=== PATIENT | female | born 1955 | race African-American/Black ===

== ENCOUNTER 2016-12-10 09:27 | Inpatient (IN) | payer MEDICARE, OTHER ==
--- NOTE | ~2016-12-10 | HP ---
History And Physical [place] [id number] [facility] [place]. [address] NAME: JACKIE REYNA : 57 STATUS : ADM Coleen PAT#: [id number] AGE: 61 ADM/REG DATE : 12/10/16 MR#: [id number] REPORT SERV DATE: 12/10/16 DICTATED BY: EMERSON GRACIA DATE: 12/10/16 REPORT STATUS : Draft TRANSCRIBED BY: MODL DATE: 12/10/16 DATE OF ADMISSION: 12/10/2016 REASON FOR ADMISSION: Dehydration, lactic acidosis, obstipation, altered mental status with encephalopathy. HISTORY OF PRESENT ILLNESS: This is a 61-year-old black female, who is cared for at home by her brother. [facility] sends a personal caregiver to sit with her in the daytime. She is followed primarily by the [facility], Tristian Bernabe and his nurse practitioner, Belen Montiel, see her for the most part. She was apparently at [facility] in the last six weeks. She was found to have an elevated ammonia and the change in mental status was attributed to hepatic encephalopathy, though primary cause of liver failure was not apparent to her brother. She has been on lactulose since that time. She continues to have constipation. He uses the MiraLAX when she does not have a bowel movement; however, the lactulose has helped with bowel movements in the past. Her blood sugars run in the 130 range. She uses metformin only about once a day. She has been on the metformin for four or five years for diabetes. She has not been known to have a hepatic steatosis or liver failure from that; however, her brother does have hepatic steatosis. Her blood sugars run at maximum of 130, but usually in the 79 to 80 range at home. He is not sure of what the hemoglobin A1cs have been in the past. She usually walks with assistance, but for the last three weeks, she has only been able to get up with a great deal of effort and assistance, and also has been refusing some of her medication. She uses a carrier such as applesauce or pudding to help her take her medication. In the emergency room, she was found to have a creatinine of 1.32. We do not have baseline level to compare. Her BUN of 22 indicates she may be somewhat dehydrated. A CT scan of her brain showed poor encephalopathy with volume loss on the left frontal area consistent with long-standing neurologic defect. Her abdominal CT scan showed evidence of stool stasis in the colon with diffuse distention in the small bowel. There was an irregular mass in the left adrenal gland, but it merged with the wall of the stomach. She does have cholelithiasis, but no evidence of pericolic inflammation. She has multiple bilateral renal cysts as well. Her lactic acid level was found to be elevated at 2.8 on the metformin, and her ammonia level was 76. 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 History And Physical [address] [address] NAME: JACKIE REYNA : 57 STATUS : ADM Coleen PAT#: [id number] AGE: 61 ADM/REG DATE : 12/10/16 MR#: [id number] REPORT SERV DATE: 12/10/16 DICTATED BY: EMERSON GRACIA DATE: 12/10/16 REPORT STATUS : Draft TRANSCRIBED BY: ADELE DATE: 12/10/16 HOME MEDICATIONS: Include the following: Keflex 500 mg p.o. b.i.d. for seven days, according to her brother was for urinary tract infection, diagnosed at [facility]; vitamin D3 at 2000 units p.o. q.a.m.; Depakote sprinkles 750 mg three times a day; Zetia 10 mg p.o. daily; lactulose 30 mL t.i.d.; Keppra 1000 mg at bedtime, 750 mg every morning; levothyroxine 25 mcg p.o. q.a.m.; loratadine 10 mg p.o. p.r.n., allergies; metformin 1000 mg p.o. q.a.m.; multivitamins one a day; MiraLAX powder 17 g p.r.n.; Maxzide 50 one a day; verapamil ER 120 mg p.o. q.a.m. SOCIAL HISTORY: She lived at home, was taken care of by her mother for the mother's life; mother now of breast cancer, and brother is taking care along with [employer] assistance. She does not smoke, drink, or dip snuff. She recognizes family members and acknowledges them. Usually does not speak, but is able to get up and walk around with assistance. FAMILY HISTORY: Mother 10 years ago of breast cancer. Father is , probably high blood pressure. Two brothers, one with a fatty liver, but no diabetes. Brother does work at [employer] and takes care of her at night. REVIEW OF SYSTEMS: Not obtainable from the patient. PHYSICAL EXAMINATION: VITAL SIGNS: Blood pressure initially was 152/69 with a heart rate of 80, respiratory rate 19, oxygen saturation was 95%. HEENT: Extraocular movements intact. The patient lifts her head, looks slowly, will not answer, will not speak. NECK: No bruit, without any JVD. CHEST: Clear to A and P. HEART: Regular S1, S2 without murmur, gallop, or click. BREASTS: Grossly without mass. ABDOMEN: Soft, obese, nontender, distended with very active bowel sounds. EXTREMITIES: Have no edema. Distal pulses are intact in the dorsalis pedis and posterior tibial. She does have contracture of the right upper extremity with flexion contractures of her elbow, wrist, and hand on the right side. Sensory exam is not testable. She does move her lower extremities, but has a brace on the left lower extremity. Walking was not attempted. LYMPHATICS: There is no adenopathy palpable. SKIN: Without rash, ecchymosis, or bruising. LABORATORY DATA: CT scan of the brain as above. CT scan of the abdomen did show evidence of obstipation as above. Urinalysis now showing two white cells per high-powered field, negative leukocyte esterase and nitrite, specific gravity of 1.018, pH 6. The lactic acid level was 2.8, slightly elevated. Her CMP did show sodium 144, potassium 3.9, creatinine 1.36, BUN 22. Her GFR was 42 mL a minute. Albumin 3.1. Protein 8.6. The AST was 74, slightly elevated. Lipase 170. Alkaline phosphatase elevated at 142. Ammonia was 76. Her valproic acid level was 113.2. Hemoglobin 14.6, hematocrit 43.3, white count 5.9, platelets History And Physical [address] [address] NAME: JACKIE REYNA : 57 STATUS : ADM Coleen PAT#: [id number] AGE: 61 ADM/REG DATE : 12/10/16 MR#: [id number] REPORT SERV DATE: 12/10/16 DICTATED BY: EMERSON GRACIA DATE: 12/10/16 REPORT STATUS : Draft TRANSCRIBED BY: MODL DATE: 12/10/16 114,000, MCV is 96.7. ASSESSMENT: 1. Encephalopathy with loss of appetite, decreased ambulation, refusal of medication, leading to dehydration. 2. Possible chronic hepatic encephalopathy, discovered at [facility] [place], we will get old records. She does have history of meningitis and history of polio with right upper extremity hemiparesis as an from years ago according to brother. 3. Seizure disorder with grand mal seizure about four years ago. The last known big seizure without the small seizure. She is followed by Dr. Jackie Chacon. She appears to be Depakote toxic. 4. Depakote toxicity. We will reduce the level to 500 mg p.o. t.i.d., though after the dehydration resolves, she may have to go back to her previous dosing. 5. Diabetes type 2. Blood sugars have been good at home, with lactic acidosis now, I blame metformin. 6. Lactic acidosis. Suspect contribution from metformin. We will discontinue this and look at the blood sugars while she is here. 7. Gallstones, appears to be not acute problem. PLAN: I am going to hydrate with 3 L of IV fluid. Attempt feeding withholding the metformin and restart the Depakote tomorrow at a lower dose. We will increase the lactulose because of elevated ammonia suspicious for hepatic encephalopathy and repeat the ammonia level in the morning. I am going to discontinue the verapamil because of the adverse side effect of constipation associated with it and substitute diltiazem 60 b.i.d. I will discontinue the Keflex as this was the most recent medication started and may be associated with some encephalopathic changes she has had. Hold the triamterene because of dehydration as well as the metformin. She may need further evaluation with a followup CT scan of the abdomen. After discussion with brother, the patient is to be DNR if natural occurs. CARROLL/ADELE Emerson Gracia M.D. / [id number] CC: Hay Ferro Jr, MD Sharon Farber, M.D. Randy Heisser, M.D.
--- NOTE | ~2016-12-10 | DS ---
Discharge Summary [facility] [address] [place]. [address] NAME: NGHIA REYNA : 57 STATUS : DIS IN PAT#: [id number] AGE: 61 ADM/REG DATE : 12/11/16 MR#: [id number] REPORT SERV DATE: 12/16/16 DICTATED BY: LEE LEONARD DATE: 12/15/16 REPORT STATUS : Draft TRANSCRIBED BY: MODGianfranco DATE: 12/15/16 ADMISSION DATE: 12/11/2016 DISCHARGE DATE: 12/14/2016 REASON FOR ADMISSION: This is a 61-year-old black female who is cared for by her older brother. 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 She is part of the [facility] day program. She came in for dehydration, lactic acidosis, obstipation, and altered mental status with encephalopathy. DISCHARGE DIAGNOSES: 1. Altered mental status secondary to Depakote toxicity. 2. History of seizure disorder. 3. Lactic acidosis secondary to metformin. 4. Hypercalcemia. 5. Elevated ammonia level secondary to Depakote versus liver disease. HOSPITAL COURSE: Altered mental status. As previously mentioned, the patient was having altered mental status before coming in, very lethargic. She was found to be Depakote toxic with a Depakote level of 113.2. Her Depakote was discontinued. She is on dual antiseizure therapy with being on Keppra and Depakote. Her Depakote level on recheck went down to 17.4 on 12/13/2016. She had no seizure episodes while here at the hospital, so it was deemed appropriate to just use monotherapy with the Keppra. Also, the patient had elevated ammonia levels. Ammonia level was 93 on admission. She is on lactulose at home apparently, but it was increased to three times a day here at the hospital and she trended down from 93 to 55 on 12/14/2016. It is unclear whether the patient actually has some liver disease or if this is just due to the Depakote; however, the patient's liver function panel was within normal limits here at the hospital and she had a CT of the abdomen and pelvis which did not show any abnormality of the liver. The patient's mental status improved each day while here at the hospital and she was much more alert and interactive and eating well by the end of her hospital stay. Another finding was the patient was found to be hypercalcemic. Intact PTH was checked and was within normal limits, but her ionized calcium was found to be 5.28 on admission. She was given pamidronate IV and her calcium level trended down from 5.28 to 4.89 before discharge. The patient also found to have lactic acidosis as her lactate level was 2.8 on admit. The patient was on metformin at home. Metformin was stopped and her repeat lactate was 1.8. Also her hemoglobin A1c was checked while here at the hospital and it was 5.1, so metformin will be permanently discontinued. DISCHARGE CONDITION: Stable. DISCHARGE MEDICATIONS: 1. Synthroid 25 mcg p.o. daily. 2. Keppra 750 mg p.o. q.a.m. 3. Keppra 1000 mg p.o. at bedtime. 4. Lactulose 30 mL p.o. t.i.d. 5. MiraLAX 17 g p.o. daily. Discharge Summary [address] [address] NAME: NGHIA REYNA : 57 STATUS : DIS IN PAT#: [id number] AGE: 61 ADM/REG DATE : 12/11/16 MR#: [id number] REPORT SERV DATE: 12/16/16 DICTATED BY: LEE LEONARD DATE: 12/15/16 REPORT STATUS : Draft TRANSCRIBED BY: ADELE DATE: 12/15/16 6. Vitamin D3 2000 units p.o. daily. 7. Claritin 10 mg p.o. daily. 8. Multivitamin one tablet p.o. daily. 9. Cardizem CD 180 mg p.o. daily. DISCHARGE PLAN: The patient to return to her home residents. Follow up with her primary care, Belen Montiel, in one to two weeks and resume [facility] day program on 12/17/2016. DICTATED BY: ANGEL Parmar/ADELE Lee Leonard APN / [id number] CC: Ankit Urena
[2016-12-10 08:37] LABS: BASOPHILS 0.3 %; BASOPHILS ABSOLUTE 0.02 10/3/uL (0.0-0.16); EOSINOPHILS 2.7 %; EOSINOPHILS ABSOLUTE 0.16 10/3/uL (0.0-0.53); ER CBC TAT 0 Hrs 09 Mins; HEMATOCRIT 43.3 % (36.0-48.0); HEMOGLOBIN 14.6 g/dL (12.0-16.0); IMMATURE GRANULOCYTES 0.5 %; IMMATURE GRANULOCYTES ABSOLUTE 0.03 10/3/uL (0.0-0.11); LYMPHOCYTES 46.4 %; LYMPHOCYTES ABSOLUTE 2.72 10/3/uL (0.67-4.30); MEAN CORPUS HGB CONC 33.7 g/dL (32.0-36.0); MEAN CORPUSCULAR HEMOGLOB 32.6 pg (26.0-34.0); MEAN CORPUSCULAR VOLUME 96.7 fL (80-100); MONOCYTES 8.5 %; NEUTROPHILS 41.6 %; NEUTROPHILS ABSOLUTE 2.43 10/3/uL (2.02-8.40); PLATELET COUNT 114 10/3/uL (150-400); RBC DISTRIBUTION WIDTH 15.4 % (12.0-16.0); RED CELL COUNT 4.48 10/6/uL (4.0-5.6); WHITE BLOOD CELLS 5.9 10/3/uL (4.5-10.5)
[2016-12-10 08:38] LABS: MANUAL DIFF NO %
[2016-12-10 08:54] LABS: A/G RATIO 0.6 (0.7-1.9); ALBUMIN 3.1 G/DL (3.5-5.0); ALKALINE PHOSPHATASE 142 U/L (45-117); BUN (BLOOD UREA NITROGEN) 22 MG/DL (6-23); CALCIUM, SERUM 12.4 MG/DL (8.5-10.4); CHLORIDE, SERUM 107 MMOL/L (96-112); CO2 (CARBON DIOXIDE) 30 MMOL/L (24-34); CREATININE 1.36 MG/DL (0.55-1.02); GFR AFRICAN AMERICAN 49 ML/MIN (>=60); GFR NON AFRICAN AMERICAN 42 ML/MIN (>=60); GLOBULIN 5.5 G/DL (2.5-4.1); GLUCOSE, SERUM 98 MG/DL (60-99); POTASSIUM, SERUM 3.9 MMOL/L (3.5-5.3); SGOT(AST) 74 U/L (5-40); SGPT(ALT) 48 U/L (5-65); SODIUM, SERUM 144 MMOL/L (135-148); TOTAL BILIRUBIN 0.3 MG/DL (0-1.2); TOTAL PROTEIN 8.6 G/DL (6.0-8.5)
[2016-12-10 09:05] LABS: LACTATE 2.8 MMOL/L (0.3-2.4)
[2016-12-10 09:21] LABS: ASCORBIC ACID (UR NOT ORDER) 40 (NEG); BILIRUBIN, URINE NEGATIVE (NEG); ER URINALYSIS TAT 0 Hrs 11 Mins; KETONE, URINE TRACE MG/DL (NEG); LEUKOCYTE ESTERASE(NOT OR NEG (NEG); NITRITE (URINE) NEG (NEG); WBC (NOT ORDERED) (RFLEX) 2 (0-5)
[~2016-12-10 09:27] MED LIST: CIP5 PO; DEPAKOTE; DEPAKOTE 125 M125 MG PO; GLUCOPHAGE; GLUCOPHAGE1000 MG PO; MAX25 PO; MAXIDE; MIRALAXPKT PO; MUCINEX1200 MG PO; PHENOBARBITAL; SYN.025B PO; TITRALALIQ PO; V180SR PO; VIT D; VITAMIN D31000 UNIT PO; ZETIA PO; [UNRECOGNIZED DRUG - CODE] PO
[2016-12-10 10:25] LABS: DEPAKENE (VALPROIC ACID) 113.2 MCG/ML (50.0-100.0)
[2016-12-10] MEDS ORDERED: GLUCOPHAGE1000 MG PO (10:32)
[2016-12-10] MEDS ORDERED: DEPASPRINK PO (10:33)
[2016-12-10] MEDS ORDERED: MAXZIDE PO (10:34)
[2016-12-10] MEDS ORDERED: [UNRECOGNIZED DRUG - CODE] PO (10:34)
[2016-12-10] MEDS ORDERED: SYN.025B PO (10:34)
[2016-12-10] MEDS ORDERED: KEPPRA750 MG PO (10:35)
[2016-12-10] MEDS ORDERED: ZETIA PO (10:35)
[2016-12-10] MEDS ORDERED: KEPPRA1000 MG PO (10:35)
[2016-12-10] MEDS ORDERED: ISOPTIN SR120 MG PO (10:36)
[2016-12-10] MEDS ORDERED: ENULOSE PO (10:37)
[2016-12-10] MEDS ORDERED: MIRALAX POWDER1 PKT PO (10:37)
[2016-12-10] MEDS ORDERED: VITAMIN D31000 UNIT PO (10:40)
[2016-12-10] MEDS ORDERED: CLARIT10 PO (10:42)
[2016-12-10] MEDS ORDERED: MULTIVIT/MIN PO (10:44)
[2016-12-11 08:05] LABS: BASOPHILS 0.2 %; BASOPHILS ABSOLUTE 0.01 10/3/uL (0.0-0.16); EOSINOPHILS 3.5 %; EOSINOPHILS ABSOLUTE 0.15 10/3/uL (0.0-0.53); HEMOGLOBIN 12.6 g/dL (12.0-16.0); IMMATURE GRANULOCYTES 0.2 %; IMMATURE GRANULOCYTES ABSOLUTE 0.01 10/3/uL (0.0-0.11); LYMPHOCYTES 55.8 %; LYMPHOCYTES ABSOLUTE 2.39 10/3/uL (0.67-4.30); MEAN CORPUS HGB CONC 33.7 g/dL (32.0-36.0); MEAN CORPUSCULAR HEMOGLOB 32.1 pg (26.0-34.0); MEAN CORPUSCULAR VOLUME 95.2 fL (80-100); MEAN PLATELET VOLUME 10.3 fL (9.2-13.0); MONOCYTES 8.6 %; MONOCYTES ABSOLUTE 0.37 10/3/uL (0.21-1.20); NEUTROPHILS 31.7 %; NEUTROPHILS ABSOLUTE 1.35 10/3/uL (2.02-8.40); PLATELET COUNT 112 10/3/uL (150-400); RBC DISTRIBUTION WIDTH 15.4 % (12.0-16.0); RED CELL COUNT 3.93 10/6/uL (4.0-5.6); WHITE BLOOD CELLS 4.3 10/3/uL (4.5-10.5)
[2016-12-11 08:06] LABS: HEMATOCRIT 37.4 % (36.0-48.0); MANUAL DIFF NO %
[2016-12-11 08:19] LABS: BUN (BLOOD UREA NITROGEN) 19 MG/DL (6-23); CALCIUM, SERUM 9.7 MG/DL (8.5-10.4); CHLORIDE, SERUM 109 MMOL/L (96-112); CO2 (CARBON DIOXIDE) 29 MMOL/L (24-34); CREATININE 1.12 MG/DL (0.55-1.02); GFR AFRICAN AMERICAN 62 ML/MIN (>=60); GFR NON AFRICAN AMERICAN 53 ML/MIN (>=60); GLUCOSE, SERUM 94 MG/DL (60-99); SODIUM, SERUM 145 MMOL/L (135-148)
[2016-12-11 12:32] LABS: PROLACTIN 33.1 NG/ML
[2016-12-12 06:23] LABS: INTERNATIONAL NORMAL RATI 1.3 UNITS (-); PARTIAL THROMBO TIME 41.6 SEC (22.5-37.2); PROTIME (NOT ORD) 16.1 SEC (12.0-14.5)
[2016-12-12 06:34] LABS: A/G RATIO 0.5 (0.7-1.9); ALBUMIN 2.5 G/DL (3.5-5.0); CALCIUM, SERUM 9.7 MG/DL (8.5-10.4); CHLORIDE, SERUM 108 MMOL/L (96-112); CO2 (CARBON DIOXIDE) 27 MMOL/L (24-34); CREATININE 1.03 MG/DL (0.55-1.02); FERRITIN 64 NG/ML (8-252); GFR AFRICAN AMERICAN 68 ML/MIN (>=60); GFR NON AFRICAN AMERICAN 59 ML/MIN (>=60); GLOBULIN 4.7 G/DL (2.5-4.1); GLUCOSE, SERUM 82 MG/DL (60-99); POTASSIUM, SERUM 3.6 MMOL/L (3.5-5.3); SGOT(AST) 53 U/L (5-40); SGPT(ALT) 38 U/L (5-65); SODIUM, SERUM 143 MMOL/L (135-148); TOTAL BILIRUBIN 0.3 MG/DL (0-1.2); TOTAL PROTEIN 7.2 G/DL (6.0-8.5)
[2016-12-12 06:35] LABS: ALKALINE PHOSPHATASE 122 U/L (45-117); BUN (BLOOD UREA NITROGEN) 12 MG/DL (6-23)
[2016-12-12 09:11] LABS: HEPATITIS B SURFACE ANTIGEN NON-REACTIVE (NON-REACT)
[2016-12-12 09:16] LABS: HEPATITIS B CORE AB IGM NON-REACTIVE (NON-REAC); HEPATITIS C ANTIBODY NON-REACTIVE (NON-REACT)
[2016-12-12 09:18] LABS: HEP A ANTIBODY IGM NON-REACTIVE (NON-REACT)
[2016-12-13 06:47] LABS: CALCIUM IONIZED 5.14 MG/DL (3.80-4.80)
[2016-12-13 11:26] LABS: A/G 0.75 RATIO (0.9-2.10); ALB RELATIVE % 42.7 % (60.0-89.0); ALBUMIN (ELECTRO) 2.99 GM/DL (3.2-5.5); ALPHA 1 (ELECTRO) 0.25 GM/DL (0.1-0.4); ALPHA 1 RELAT % (NOT ORD) 3.5 % (1.0-4.0); ALPHA 2 (ELECTRO) 0.98 GM/DL (0.5-1.10); BETA GLOBULIN (SPE) 0.97 GM/DL (0.60-1.30); BETA RELATIVE % 13.9 % (9.0-22.0); GAMMA GLOBULIN (SPE) 1.81 G/DL (0.70-1.60); GAMMA RELAT % 25.9 % (6.0-22.0)
[2016-12-14 05:55] LABS: BASOPHILS 0.7 %; BASOPHILS ABSOLUTE 0.03 10/3/uL (0.0-0.16); EOSINOPHILS 3.3 %; EOSINOPHILS ABSOLUTE 0.15 10/3/uL (0.0-0.53); HEMATOCRIT 36.3 % (36.0-48.0); HEMOGLOBIN 12.1 g/dL (12.0-16.0); IMMATURE GRANULOCYTES 0.4 %; IMMATURE GRANULOCYTES ABSOLUTE 0.02 10/3/uL (0.0-0.11); LYMPHOCYTES 44.4 %; LYMPHOCYTES ABSOLUTE 2.01 10/3/uL (0.67-4.30); MEAN CORPUS HGB CONC 33.3 g/dL (32.0-36.0); MEAN CORPUSCULAR HEMOGLOB 31.6 pg (26.0-34.0); MEAN CORPUSCULAR VOLUME 94.8 fL (80-100); MEAN PLATELET VOLUME 10.2 fL (9.2-13.0); MONOCYTES 7.7 %; MONOCYTES ABSOLUTE 0.35 10/3/uL (0.21-1.20); NEUTROPHILS 43.5 %; NEUTROPHILS ABSOLUTE 1.97 10/3/uL (2.02-8.40); PLATELET COUNT 116 10/3/uL (150-400); RBC DISTRIBUTION WIDTH 15.6 % (12.0-16.0); RED CELL COUNT 3.83 10/6/uL (4.0-5.6); WHITE BLOOD CELLS 4.5 10/3/uL (4.5-10.5)
[2016-12-14 05:57] LABS: CALCIUM IONIZED 4.89 MG/DL (3.80-4.80); MANUAL DIFF NO %
[2016-12-14 06:08] LABS: BUN (BLOOD UREA NITROGEN) 10 MG/DL (6-23); CHLORIDE, SERUM 114 MMOL/L (96-112); CO2 (CARBON DIOXIDE) 24 MMOL/L (24-34); CREATININE 0.96 MG/DL (0.55-1.02); GFR AFRICAN AMERICAN 75 ML/MIN (>=60); GFR NON AFRICAN AMERICAN 64 ML/MIN (>=60); POTASSIUM, SERUM 3.7 MMOL/L (3.5-5.3); SODIUM, SERUM 145 MMOL/L (135-148)
[2016-12-14 06:09] LABS: CALCIUM, SERUM 8.7 MG/DL (8.5-10.4); GLUCOSE, SERUM 103 MG/DL (60-99)
[2016-12-14] MEDS ORDERED: DILT-XR180 MG PO (15:01)
[2017-02-12] MEDS ORDERED: PRILO PO (14:52)
[2017-02-12] MEDS ORDERED: CARTIA XT180 MG/24 PO (14:54)
[2017-02-12] MEDS ORDERED: GENERLAC PO (14:55)
[2017-02-12] MEDS ORDERED: SYN.025B PO (14:56)
[2017-02-12] MEDS ORDERED: ZETIA PO (14:56)
[2017-02-12] MEDS ORDERED: MIRALAX POWDER1 PKT PO (14:56)
[2017-02-12] MEDS ORDERED: MAXZIDE PO (14:57)
[2017-02-12] MEDS ORDERED: KEPPRA500 PO (14:57)
[2017-02-16] MEDS ORDERED: BISR PR (12:14)
[2017-02-16] MEDS ORDERED: BIST PO (12:15)
[2017-03-15] MEDS ORDERED: MIRALAX POWDER1 PKT PO (08:35)
== END 2016-12-14 18:40 | disposition home or self-care (01) | DRG 682 ==
LOC: ER 09:27 → CDU1 13:38 → CDU2 13:46 → 1SO 12-11 16:03
PROVIDERS: Internal Medicine; Nurse Practitioner Gerontology; Physician Assistant
DX: N17.9 Acute kidney failure, unspecified (principal); G93.40 Encephalopathy, unspecified; E72.4 Disorders of ornithine metabolism; E87.2 Acidosis; E83.52 Hypercalcemia; E86.0 Dehydration; E66.9 Obesity, unspecified; K59.00 Constipation, unspecified; Z66 Do not resuscitate; K80.80 Other cholelithiasis without obstruction; F09 Unspecified mental disorder due to known physiological condition; F79 Unspecified intellectual disabilities; G40.909 Epilepsy, unspecified, not intractable, without status epilepticus; Z68.27 Body mass index [BMI] 27.0-27.9, adult; R63.0 Anorexia; N28.1 Cyst of kidney, acquired; T42.6X5A Adverse effect of other antiepileptic and sedative-hypnotic drugs, initial encounter; T38.3X5A Adverse effect of insulin and oral hypoglycemic [antidiabetic] drugs, initial encounter; E11.9 Type 2 diabetes mellitus without complications; Z79.84 Long term (current) use of oral hypoglycemic drugs; Z79.899 Other long term (current) drug therapy; Z91.14 Patient's other noncompliance with medication regimen; Z86.12 Personal history of poliomyelitis; Z80.3 Family history of malignant neoplasm of breast; Z88.8 Allergy status to other drugs, medicaments and biological substances
CPT/HCPCS: 70450; 71010; 74000; 74176; 80048; 80053; 80074; 80164; 81001; 82140; 82164; 82306; 82330; 82728; 82962; 82977; 83036; 83605; 83690; 83970; 84146; 84155; 84165; 85025; 85610; 85730; 96360; 97162-GP; 99285; A9270-GY; G8978-CN-GP; G8979-CL-GP; J2430

== ENCOUNTER 2017-03-18 11:04 | Day surgery (SDC) | payer MEDICARE, OTHER ==
[2017-03-14 09:59] LABS: HEMOGLOBIN 13.6 g/dL (12.0-16.0)
[2017-03-14 10:14] LABS: A/G RATIO 0.6 (0.7-1.9); ALBUMIN 3.2 G/DL (3.5-5.0); ALKALINE PHOSPHATASE 393 U/L (45-117); BUN (BLOOD UREA NITROGEN) 16 MG/DL (6-23); CALCIUM, SERUM 9.8 MG/DL (8.5-10.4); CHLORIDE, SERUM 110 MMOL/L (96-112); CO2 (CARBON DIOXIDE) 26 MMOL/L (24-34); GFR AFRICAN AMERICAN 81 ML/MIN (>=60); GFR NON AFRICAN AMERICAN 69 ML/MIN (>=60); GLOBULIN 5.5 G/DL (2.5-4.1); GLUCOSE, SERUM 168 MG/DL (60-99); POTASSIUM, SERUM 3.2 MMOL/L (3.5-5.3); SGOT(AST) 224 U/L (5-40); SGPT(ALT) 161 U/L (5-65); SODIUM, SERUM 143 MMOL/L (135-148); TOTAL BILIRUBIN 0.4 MG/DL (0-1.2); TOTAL PROTEIN 8.7 G/DL (6.0-8.5)
[~2017-03-18] VITALS: Ht 162.6 cm; Wt 73.5 kg
--- NOTE | ~2017-03-18 | OP ---
Record Of Operation [facility] [address] [place]. [address] NAME: NGHIA REYNA : 57 STATUS : [facility]#: [id number] AGE: 61 ADM/REG DATE : 03/18/17 MR#: [id number] REPORT SERV DATE: 03/19/17 DICTATED BY: ASH CALLE DATE: 03/19/17 REPORT STATUS : Draft TRANSCRIBED BY: MODL DATE: 03/19/17 DATE OF PROCEDURE: 03/18/2017 PREOPERATIVE DIAGNOSIS: Severe chronic cholecystitis with cholelithiasis. POSTOPERATIVE DIAGNOSIS: Severe chronic cholecystitis with cholelithiasis. PROCEDURE: Laparoscopic cholecystectomy (four site). DESCRIPTION OF OPERATIVE PROCEDURE: The patient was brought to the operating suite, placed in the supine position, underwent satisfactory general endotracheal anesthesia without incident. The skin of the abdomen was scrubbed, prepped, and draped in the usual sterile fashion, 0.5% Marcaine with epinephrine utilized as supplemental local anesthesia at all intended trocar sites. Initially, an infraumbilical incision was performed dissecting through the skin and subcutaneous tissue to the level of the umbilical fascia, this was grasped with a Meryl clamp and elevated, and a disposable Veress insufflation needle was inserted through the umbilical fascia into the peritoneal cavity. Intraperitoneal tip location ascertained using the saline hanging drop method following which CO2 was insufflated for pressures of 15 mmHg throughout the case. After adequate insufflation pressures were achieved, the Veress needle was removed, a disposable bladed shielded 11-mm trocar was inserted through the umbilical fascia into the peritoneal cavity following which a rigid forward-viewing 10-mm laparoscope was inserted. Visualization of the intra-abdominal parietes revealed no evidence of injury from initial insufflation or puncture. A cursory examination of the pelvis was normal. Attention was turned to the upper abdomen where three additional trocars were eventually inserted under direct visualization, all 5 mm in size. The patient was placed in reverse Trendelenburg position, and the right upper quadrant was visualized. There was a surprising thick, scarred in, subacutely and chronically diseased gallbladder. The fundus and body of the gallbladder were grasped and elevated, it was somewhat contracted and shrunken. Tedious dissection of triangle of Calot was eventually successful in identifying and skeletonizing the cystic duct, cystic duct-common duct junction, as well as the cystic artery, the critical view was obtained. The cystic artery was controlled with multiple applications of the Weck 5-mm clip maintenance supervisor 2nd shift and then further dissection of the lower half of the gallbladder off the liver bed was performed because the cystic duct was quite thickened and scarred. Eventually, the cystic duct was controlled with multiple applications of the Weck 5-mm polymer clip system and divided and then using spatula cautery dissection supplemented with irrigation aspiration, the gallbladder was removed from the subhepatic space and hemostasis was assured. Record Of Operation [place] [id number] [place]. [address] NAME: NGHIA REYNA : 57 STATUS : [facility] PAT#: [id number] AGE: 61 ADM/REG DATE : 03/18/17 MR#: [id number] REPORT SERV DATE: 03/19/17 DICTATED BY: ASH CALLE DATE: 03/19/17 REPORT STATUS : Draft TRANSCRIBED BY: MODL DATE: 03/19/17 Next, the camera switched to a 5-mm epigastric port, the gallbladder was placed inside an Endo retrieval pouch for removal and trocars removed, no muscular bleeding was noted. The Endo retrieval pouch was brought out through the umbilicus, opened, morcellated, and the gallbladder was removed intact. The umbilicus was closed with [id number] suture of 0 Vicryl, subcutaneous tissue closure with interrupted 4-0 Vicryl, running subcuticular stitch of 4-0 Vicryl for the skin; Dermabond skin adhesive placed. The patient tolerated the procedure well, was returned to PACU in stable condition. At the termination of the procedure, sponge, needle, lap, and instrument count correct x3. ESTIMATED BLOOD LOSS: 20 to 25 mL. WR/MODL Ash Calle M.D. / [id number] CC: Ankit Faith TINA
[~2017-03-18 11:04] MED LIST changes: +BISR PR; +BIST PO; +CARTIA XT180 MG/24 PO; +CLARIT10 PO; +DEPASPRINK PO; +DILT-XR180 MG PO; +ENULOSE PO; +GENERLAC PO; +ISOPTIN SR120 MG PO; +KEPPRA1000 MG PO; +KEPPRA500 PO; +KEPPRA750 MG PO; +MAXZIDE PO; +MIRALAX POWDER1 PKT PO; +MULTIVIT/MIN PO; +PRILO PO; +[UNRECOGNIZED DRUG - CODE] PO
== END 2017-03-18 20:12 | disposition home or self-care (01) ==
LOC: SDC 11:04
PROVIDERS: Specialist
PROC: 0FT44ZZ Resection of Gallbladder, Percutaneous Endoscopic Approach (ICD-10-PCS; principal; 2017-03-18 12:45)
DX: K80.10 Calculus of gallbladder with chronic cholecystitis without obstruction (principal); I10 Essential (primary) hypertension; E11.9 Type 2 diabetes mellitus without complications; E03.9 Hypothyroidism, unspecified; M19.90 Unspecified osteoarthritis, unspecified site; F81.9 Developmental disorder of scholastic skills, unspecified; G40.909 Epilepsy, unspecified, not intractable, without status epilepticus; Z88.8 Allergy status to other drugs, medicaments and biological substances; Z79.899 Other long term (current) drug therapy; Z98.890 Other specified postprocedural states
CPT/HCPCS: 76000; 80053; 82962; 85014; 85018; 88304; 93005; J0690; J2250; J2405; J2710; J3010